=== PATIENT | female | born 1970 | race Caucasian/White ===

== ENCOUNTER → 2020-09-08 | Day surgery (SDC) | payer OTHER ==
[~2020-09-08] VITALS: Ht 170.2 cm; Wt 74.8 kg
[~2020-09-08] MED LIST: COQ10 PO; DITROPAN5 MG PO; ERRIN0.35 MG PO; GARLIC PO; LIPITOR 10MG TA10 MG PO; METFORMIN HCL500 MG PO; NIACIN PO; OMEGA 3 PO; OXYTROL FOR WO1 EACH PO; PRINIVIL10 MG PO; VIT C PO; VIT D PO; XALATAN2.5 ML OU; ZINC50 M1 PO
[2020-09-08 08:53] LABS: HGB 13.7 g/dl (12.5-16.0); MCHC 32.6 g/dL (32.0-36.0); MCV 91.9 fL (78.0-100.0); RBC 4.57 M/uL (4.20-5.40); RDW 13.2 % (11.5-14.0); WBC 10.4 K/uL (4.0-10.5)
[2020-09-08 09:14] LABS: ALBUMIN 3.9 g/dL (3.4-5.0); BILIRUBIN - TOTAL 0.8 mg/dL (0.2-1.0); BUN/CREAT RATIO (CALC) 14.7 RATIO; CREATININE 0.75 mg/dL (0.51-0.95); GLOBULIN (CALCULATION) 4.3 g/dL; POTASSIUM 4.5 mmol/L (3.5-5.1); TOTAL PROTEIN 8.2 g/dL (6.4-8.2)
== END | disposition home or self-care (01) ==
LOC: FAS 08:19
PROVIDERS: Surgery
DX: Z12.11 Encounter for screening for malignant neoplasm of colon (principal); I10 Essential (primary) hypertension; E78.00 Pure hypercholesterolemia, unspecified; E28.2 Polycystic ovarian syndrome; Z88.2 Allergy status to sulfonamides
CPT/HCPCS: 36415; 80053; J2250; J2704; J7120